=== PATIENT | male | born 1975 | race African-American/Black ===

== ENCOUNTER 2021-12-24 23:51 | Inpatient (IN) | payer OTHER, MEDICAID ==
[~2021-12-24] VITALS: Ht 175.3 cm; Wt 92.8 kg
[2021-12-25] MEDS ORDERED: THIAMINE HCL 100 MG TAB PO ONE (01:00)
[2021-12-25] MEDS ORDERED: SODIUM CHLORIDE 0.9% 1,000 ML IV ONE (01:00)
[2021-12-25] MEDS ORDERED: LORazepam 2MG/ML-1ML VIAL IV ONE ×2 (01:00→07:30)
[2021-12-25 01:41] LABS: Basophils # (auto) 0 10 ^3/uL (0-0.2); Basophils % (auto) 0.7 % (0.0-2.0); Eosinophils # (auto) 0.1 10 ^3/uL (0-0.8); Eosinophils % (auto) 3.2 % (0.0-7.0); Hematocrit 41.5 % (41.0-53.0); Hemoglobin 14.2 g/dL (13.5-17.5); Lymphocytes # (auto) 0.9 10 ^3/uL (0.4-5.4); Lymphocytes % (auto) 29.5 % (10.0-50.0); Mean Corpuscular Hemoglobin 33.2 pg (28.0-32.0); Mean Corpuscular Hgb Conc. 34.1 g/dL (32.0-36.0); Mean Corpuscular Volume 97.3 fL (80.0-100.0); Monocytes # (auto) 0.5 10 ^3/uL (0-1.3); Monocytes % (auto) 14.6 % (0.0-12.0); Neutrophils # (auto) 1.6 10 ^3/uL (1.6-8.6); Nucleated Red Blood Cells % 0.1 %; Red Blood Cells 4.27 10^6/uL (4.5-5.90); Red Cell Distribution Width 14.3 % (11.8-14.3); White Blood Cell 3.1 10^3/uL (4.4-10.8)
[2021-12-25 02:10] LABS: BUN/Creatinine Ratio 10.6; Calcium 8.8 mg/dL (8.5-10.1); Potassium 3.8 mmol/L (3.5-5.1)
[2021-12-25 02:12] LABS: Bilirubin, Total 2.2 mg/dL (0.2-1.0); Total Protein 7.2 g/dL (6.4-8.2)
[2021-12-25] MEDS ORDERED: LORazepam 2MG/ML-1ML VIAL IV PRN ×3 (11:30→18:45)
[2021-12-25] MEDS ORDERED: SODIUM CHLORIDE 0.9% 2,000 ML IV ONE (11:30)
[2021-12-25] MEDS ORDERED: ONDANSETRON HCL 4 MG/2 ML VIAL IV PRN (11:30)
[2021-12-25] MEDS ORDERED: ALBUTEROL SULF 2.5 MG/0.5ML(0.5%) NEB SOLN NEB PRN (11:45)
[2021-12-25] MEDS: FOLIC ACID 1 MG, MULTIPLE VITAMIN 10 ML, THIAMINE INJ 100 MG in SODIUM CHLORIDE 0.9% 1,... INJ SCH (12:00)
[2021-12-25 12:31] LABS: Cholesterol 274 mg/dL (< 200); HDL Cholesterol 87 mg/dL (40-59); LDL Cholesterol 157 mg/dL (< 100); Triglycerides 168 mg/dL (< 150)
[2021-12-25 13:18] VITALS: BP 130/76
[2021-12-25] MEDS ORDERED: chlordiazePOXIDE HCL 25 MG CAP PO PRN (18:45)
[2021-12-25 22:00] VITALS: BP 144/93
[2021-12-26 05:26] VITALS: BP 146/85
[2021-12-26 08:40] VITALS: BP 152/94
[2021-12-26 09:24] LABS: Basophils # (auto) 0 10 ^3/uL (0-0.2); Basophils % (auto) 0.5 % (0.0-2.0); Eosinophils # (auto) 0.2 10 ^3/uL (0-0.8); Eosinophils % (auto) 4.9 % (0.0-7.0); Hemoglobin 14.1 g/dL (13.5-17.5); Lymphocytes # (auto) 1.2 10 ^3/uL (0.4-5.4); Lymphocytes % (auto) 37.8 % (10.0-50.0); Mean Corpuscular Hemoglobin 33.2 pg (28.0-32.0); Mean Corpuscular Hgb Conc. 34.4 g/dL (32.0-36.0); Mean Corpuscular Volume 96.7 fL (80.0-100.0); Monocytes # (auto) 0.4 10 ^3/uL (0-1.3); Monocytes % (auto) 13.5 % (0.0-12.0); Neutrophils # (auto) 1.4 10 ^3/uL (1.6-8.6); Neutrophils % (auto) 43.3 % (37.0-80.0); Nucleated Red Blood Cells % 0.4 %; Red Blood Cells 4.24 10^6/uL (4.5-5.90); Red Cell Distribution Width 13.6 % (11.8-14.3); White Blood Cell 3.1 10^3/uL (4.4-10.8)
[2021-12-26 09:42] LABS: Potassium 3.6 mmol/L (3.5-5.1)
[2021-12-26 09:43] LABS: Albumin 3.6 g/dL (3.4-5.0); Calcium 8.4 mg/dL (8.5-10.1)
[2021-12-26 09:46] LABS: BUN/Creatinine Ratio 11.1; Bilirubin, Total 1.6 mg/dL (0.2-1.0)
[2021-12-26] MEDS ORDERED: ENOXAPARIN SOD 30 MG/0.3 ML SYRINGE SC SCH (10:00)
[2021-12-26] MEDS: ALBUTEROL SULF 2.5 MG/0.5ML(0.5%) NEB SOLN ONE ×2 (11:34→11:45)
[2021-12-26] MEDS ORDERED: ALBUTEROL SULF 2.5 MG/0.5ML(0.5%) NEB SOLN NEB SCH (12:00)
[2021-12-26 12:30] VITALS: BP 143/88
[2021-12-26] MEDS: FOLIC ACID 1 MG, MULTIPLE VITAMIN 10 ML, THIAMINE INJ 100 MG in SODIUM CHLORIDE 0.9% 1,... INJ SCH (13:00)
== END 2021-12-26 14:25 | disposition left against medical advice (07) | DRG 101 ==
LOC: EDBD 23:51 → ER 23:51 → TELE 12-25 11:23 → TELE-CENTR 12-25 20:00
PROVIDERS: ADMIT Registered Nurse; ATTEND Family Medicine
DX: G40.89 Other seizures (principal); F10.239 Alcohol dependence with withdrawal, unspecified; Z20.822 Contact with and (suspected) exposure to COVID-19; Z53.29 Procedure and treatment not carried out because of patient's decision for other reasons; D69.6 Thrombocytopenia, unspecified; F41.9 Anxiety disorder, unspecified; Y90.9 Presence of alcohol in blood, level not specified; J45.909 Unspecified asthma, uncomplicated; K70.10 Alcoholic hepatitis without ascites; N40.0 Benign prostatic hyperplasia without lower urinary tract symptoms
CPT/HCPCS: 36415; 70450; 70551; 71045; 76705; 80053; 80061; 80320; 84484; 85025; 93005; 93886; 94640; 96361; 96374; 96376; G0378

== ENCOUNTER 2022-06-23 04:35 | Emergency (ER) | payer OTHER, MEDICAID ==
[~2022-06-23] VITALS: Ht 175.3 cm; Wt 95.0 kg
[2022-06-23 04:35] VITALS: BP 133/78
[2022-06-23] MEDS ORDERED: THIAMINE 100mg/ml INJ (200mg/2ml VIAL) IV ONE (06:45)
[2022-06-23] MEDS ORDERED: SODIUM CHLORIDE 0.9% 1,000 ML IV ONE ×2 (06:45)
[2022-06-23 07:23] LABS: Hematocrit 43.6 % (41.0-53.0); Mean Corpuscular Hemoglobin 32.8 pg (28.0-32.0); Mean Corpuscular Hgb Conc. 34.3 g/dL (32.0-36.0); Mean Corpuscular Volume 95.4 fL (80.0-100.0); Red Blood Cells 4.56 10^6/uL (4.5-5.90); Red Cell Distribution Width 13.5 % (11.8-14.3); White Blood Cell 3.2 10^3/uL (4.4-10.8)
[2022-06-23 07:38] LABS: Band Neutrophils % (manual) 0; Blast Cells 0; Metamyelocytes % 0; Myelocytes % 0; Promyelocytes % 0; Reactive Lymphocytes 0
[2022-06-23 07:43] LABS: Albumin 4.4 g/dL (3.4-5.0); Calcium 8.7 mg/dL (8.5-10.1); Potassium 4.2 mmol/L (3.5-5.1)
[2022-06-23 07:47] LABS: BUN/Creatinine Ratio 13.1; Bilirubin, Total 1.3 mg/dL (0.2-1.0)
[2022-06-23 09:57] LABS: Basophils % (manual) 2 (0.0-2.0); Eosinophils % (manual) 1 (0-7); Lymphocytes % (manual) 58 (10.0-50.0); Monocytes % (manual) 8 (0-12)
== END 2022-06-23 17:05 | disposition home or self-care (01) ==
LOC: ER 04:35
DX: F10.10 Alcohol abuse, uncomplicated (principal); J45.909 Unspecified asthma, uncomplicated; F17.210 Nicotine dependence, cigarettes, uncomplicated; F12.10 Cannabis abuse, uncomplicated
CPT/HCPCS: 36415; 80053; 80320; 84484; 85007; 85027; 96361; 96374; 99284; J3411; J7030

== ENCOUNTER → 2022-07-25 | Emergency (ER) | payer OTHER, MEDICAID ==
[~2022-07-25] VITALS: Ht 175.3 cm; Wt 90.1 kg
[~2022-07-25] MED LIST: LORA-205 PO; NALT50TA27 PO; TAM04C PO; THIA100T10 PO; [UNRECOGNIZED DRUG - CODE] EX
[2022-07-25 16:58] VITALS: BP 122/93
[2022-07-25 17:29] LABS: Basophils # (auto) 0.1 10 ^3/uL (0-0.2); Basophils % (auto) 1.1 % (0.0-2.0); Eosinophils # (auto) 0.1 10 ^3/uL (0-0.8); Eosinophils % (auto) 2.7 % (0.0-7.0); Hematocrit 49.2 % (41.0-53.0); Hemoglobin 16.2 g/dL (13.5-17.5); Lymphocytes # (auto) 2.1 10 ^3/uL (0.4-5.4); Lymphocytes % (auto) 38.8 % (10.0-50.0); Mean Corpuscular Hemoglobin 32.1 pg (28.0-32.0); Mean Corpuscular Volume 97.3 fL (80.0-100.0); Monocytes # (auto) 0.4 10 ^3/uL (0-1.3); Monocytes % (auto) 7.6 % (0.0-12.0); Neutrophils # (auto) 2.7 10 ^3/uL (1.6-8.6); Neutrophils % (auto) 49.8 % (37.0-80.0); Nucleated Red Blood Cells % 0.2 %; Red Blood Cells 5.05 10^6/uL (4.5-5.90); Red Cell Distribution Width 13.5 % (11.8-14.3); White Blood Cell 5.4 10^3/uL (4.4-10.8)
[2022-07-25 17:53] LABS: Albumin 4.3 g/dL (3.4-5.0); BUN/Creatinine Ratio 13.3; Calcium 8.5 mg/dL (8.5-10.1); Potassium 4.7 mmol/L (3.5-5.1)
[2022-07-25 17:56] LABS: Bilirubin, Total 0.8 mg/dL (0.2-1.0)
== END | disposition left against medical advice (07) ==
LOC: ER 16:14
DX: F41.9 Anxiety disorder, unspecified (principal); R07.89 Other chest pain; Z53.21 Procedure and treatment not carried out due to patient leaving prior to being seen by health care provider
CPT/HCPCS: 36415; 71045; 80053; 84484; 85025

== ENCOUNTER 2022-07-26 22:19 | Inpatient (IN) | payer OTHER, MEDICAID ==
[~2022-07-26] VITALS: Ht 175.3 cm; Wt 90.1 kg
[2022-07-26] MEDS ORDERED: SODIUM CHLORIDE 0.9% 1,000 ML IV ONE (22:45)
[2022-07-26] MEDS ORDERED: LORazepam 0.5 MG TAB PO ONE (22:45)
[2022-07-26] MEDS ORDERED: LORazepam 2MG/ML-1ML VIAL IM ONE (22:45)
[2022-07-26] MEDS ORDERED: PHENobarbital SODIUM 130 MG/ML VL IV ONE (22:45)
[2022-07-27 00:06] LABS: Basophils # (auto) 0.1 10 ^3/uL (0-0.2); Basophils % (auto) 1.2 % (0.0-2.0); Eosinophils # (auto) 0.2 10 ^3/uL (0-0.8); Eosinophils % (auto) 3.7 % (0.0-7.0); Hematocrit 48.2 % (41.0-53.0); Hemoglobin 15.9 g/dL (13.5-17.5); Lymphocytes # (auto) 2.6 10 ^3/uL (0.4-5.4); Lymphocytes % (auto) 47.6 % (10.0-50.0); Mean Corpuscular Hemoglobin 32.2 pg (28.0-32.0); Mean Corpuscular Volume 97.5 fL (80.0-100.0); Monocytes # (auto) 0.3 10 ^3/uL (0-1.3); Monocytes % (auto) 6.2 % (0.0-12.0); Neutrophils # (auto) 2.3 10 ^3/uL (1.6-8.6); Neutrophils % (auto) 41.3 % (37.0-80.0); Nucleated Red Blood Cells % 0.1 %; Red Blood Cells 4.94 10^6/uL (4.5-5.90); Red Cell Distribution Width 13.2 % (11.8-14.3); White Blood Cell 5.5 10^3/uL (4.4-10.8)
[2022-07-27] MEDS ORDERED: LORazepam 0.5 MG TAB PO ONE (01:30)
[2022-07-27 01:33] LABS: Albumin 4.5 g/dL (3.4-5.0); Potassium 4.6 mmol/L (3.5-5.1)
[2022-07-27 01:36] LABS: Bilirubin, Total 1.3 mg/dL (0.2-1.0); Total Protein 8.3 g/dL (6.4-8.2)
[2022-07-27] MEDS ORDERED: chlordiazePOXIDE HCL 25 MG CAP PO PRN (03:45)
[2022-07-27] MEDS ORDERED: TEMAZEPAM 15 MG CAP PO PRN (03:45)
[2022-07-27] MEDS ORDERED: NITROGLYCERIN 0.4 MG SL TAB SL PRN (03:45)
[2022-07-27] MEDS ORDERED: MORPHINE SULFATE INJ 2 MG/ml SYRG IV PRN (03:45)
[2022-07-27] MEDS ORDERED: ONDANSETRON HCL 4 MG/2 ML VIAL IV PRN ×2 (03:45→16:00)
[2022-07-27] MEDS ORDERED: FOLIC ACID 1 MG, MULTIPLE VITAMIN 10 ML, MAGNESIUM SULF SDV 50% 8 MEQ, THIAMINE INJ 100... INJ SCH ×5 (12:00)
[2022-07-27] MEDS ORDERED: FOLIC ACID 1 MG TAB PO ONE (16:00)
[2022-07-27] MEDS ORDERED: THIAMINE HCL 100 MG TAB PO ONE (16:00)
[2022-07-27] MEDS ORDERED: MULTIPLE VITAMIN TAB PO ONE (16:00)
[2022-07-27] MEDS: chlordiazePOXIDE HCL 25 MG CAP PO SCH (16:33)
[2022-07-27] MEDS ORDERED: TAMSULOSIN HYDROCHLORIDE 0.4 MG CAP PO SCH (18:00)
[2022-07-27] MEDS: LORazepam 0.5 MG TAB PO PRN (20:43)
[2022-07-28] MEDS: chlordiazePOXIDE HCL 25 MG CAP PO SCH ×2 (00:49→09:25)
[2022-07-28] MEDS: LORazepam 0.5 MG TAB PO PRN (04:59)
[2022-07-28] MEDS ORDERED: ACETAMINOPHEN 325 MG TAB PO ONE (07:00)
[2022-07-28] MEDS ORDERED: MULTIPLE VITAMIN TAB PO SCH (10:00)
[2022-07-28] MEDS ORDERED: FOLIC ACID 1 MG TAB PO SCH (10:00)
[2022-07-28] MEDS ORDERED: THIAMINE HCL 100 MG TAB PO SCH (10:00)
[2022-07-28] MEDS ORDERED: chlordiazePOXIDE HCL 25 MG CAP PO SCH (10:00)
[2022-07-28 11:00] VITALS: BP 139/92
[2022-07-28] MEDS ORDERED: LORA-205 PO (13:03)
[2022-07-28] MEDS ORDERED: THIA100T10 PO (13:08)
[2022-07-28] MEDS ORDERED: [UNRECOGNIZED DRUG - CODE] EX (13:08)
[2022-07-28] MEDS ORDERED: TAM04C PO (13:08)
[2022-07-28] MEDS ORDERED: NALT50TA27 PO (13:08)
[2022-07-29] MEDS ORDERED: chlordiazePOXIDE HCL 25 MG CAP PO SCH (10:00)
[2022-07-30] MEDS ORDERED: chlordiazePOXIDE HCL 25 MG CAP PO SCH (07:00)
== END 2022-07-28 13:44 | disposition home or self-care (01) | DRG 897 ==
LOC: ER 22:24 → TELE 07-27 03:31
PROVIDERS: ADMIT Nurse Practitioner; ATTEND Student in an Organized Health Care Education/Training Program
DX: F10.229 Alcohol dependence with intoxication, unspecified (principal); F10.239 Alcohol dependence with withdrawal, unspecified; F17.210 Nicotine dependence, cigarettes, uncomplicated; F41.9 Anxiety disorder, unspecified; J45.909 Unspecified asthma, uncomplicated; N40.0 Benign prostatic hyperplasia without lower urinary tract symptoms; Z20.822 Contact with and (suspected) exposure to COVID-19; Z91.013 Allergy to seafood
CPT/HCPCS: 36415; 71045; 80053; 80320; 83690; 83735; 84484; 85025; 87426; 93005; 96372; G0378; J2405

== ENCOUNTER 2023-02-08 22:09 | Emergency (ER) | payer OTHER ==
[~2023-02-08] VITALS: Ht 175.3 cm; Wt 95.4 kg
[~2023-02-08 22:09] MED LIST changes: +HYDR-4798 PO; +IBUP-1455 PO; +PERCOT PO; -TAM04C PO; +TAMS-35 PO
[2023-02-09] MEDS ORDERED: ONDANSETRON HCL 4 MG/2 ML VIAL IV ONE (00:30)
[2023-02-09] MEDS ORDERED: HYDROmorphone HCL 2 MG/ML VL/or syr IV ONE (00:30)
[2023-02-09] MEDS ORDERED: LORazepam 2MG/ML-1ML VIAL IV ONE (00:30)
[2023-02-09] MEDS ORDERED: ceFAZolin 2 GM/D5W100ml 100 ML IV ONE (00:30)
[2023-02-09] MEDS ORDERED: SODIUM CHLORIDE 0.9% 1,000 ML IV ONE (00:30)
[2023-02-09] MEDS ORDERED: VANCOMYCIN 1GM/250ML 250 ML IV ONE ×2 (01:19→01:30)
[2023-02-09 01:56] VITALS: BP 145/88
== END 2023-02-09 02:14 | disposition short-term general hospital (02) ==
LOC: ER 22:09
DX: S02.32XA Fracture of orbital floor, left side, initial encounter for closed fracture (principal); J45.909 Unspecified asthma, uncomplicated; F41.9 Anxiety disorder, unspecified; F17.210 Nicotine dependence, cigarettes, uncomplicated; F12.10 Cannabis abuse, uncomplicated; F10.20 Alcohol dependence, uncomplicated; Z91.013 Allergy to seafood; Y90.9 Presence of alcohol in blood, level not specified; V43.62XA Car passenger injured in collision with other type car in traffic accident, initial encounter; Y93.89 Activity, other specified; Y92.89 Other specified places as the place of occurrence of the external cause; Y99.8 Other external cause status
CPT/HCPCS: 70450; 70486; 71250; 72125; 74176; 96365; 96375; 99285; J1170; J2405; J3370; J7030

== ENCOUNTER 2023-03-01 06:04 | Emergency (ER) | payer OTHER ==
[~2023-03-01] VITALS: Ht 175.3 cm; Wt 95.5 kg
[2023-03-01 09:41] VITALS: BP 132/87
== END 2023-03-01 09:45 | disposition home or self-care (01) ==
LOC: ER 06:04
DX: R51.9 Headache, unspecified (principal); M54.50 Low back pain, unspecified; S02.85XS Fracture of orbit, unspecified, sequela; J45.909 Unspecified asthma, uncomplicated; F17.210 Nicotine dependence, cigarettes, uncomplicated; F12.10 Cannabis abuse, uncomplicated; V89.2XXS Person injured in unspecified motor-vehicle accident, traffic, sequela
CPT/HCPCS: 70450; 70486; 72131

== ENCOUNTER 2023-07-11 02:36 | Emergency (ER) | payer OTHER ==
[~2023-07-11] VITALS: Ht 175.3 cm; Wt 90.0 kg
[2023-07-11 02:50] VITALS: BP 124/78; PULSE 98; RESP 16; O2SAT 95
[2023-07-11 03:22] LABS: Urine Bacteria NONE SEEN /hpf (None Seen); Urine Blood Negative /uL (Negative); Urine Clarity Clear (Clear); Urine Color Yellow (Yellow); Urine Mucus FEW (None Seen); Urine Protein, UAD TRACE (Negative); Urine Specific Gravity 1.028 (1.001-1.035); Urine Urobilinogen Normal (Negative); Urine WBC 1 /hpf (0 - 3); Urine pH 5.5 (5.0-8.0)
== END 2023-07-11 04:56 | disposition left against medical advice (07) ==
LOC: ER 02:36
DX: N50.812 Left testicular pain (principal); N50.811 Right testicular pain; R30.9 Painful micturition, unspecified; Z53.21 Procedure and treatment not carried out due to patient leaving prior to being seen by health care provider
CPT/HCPCS: 81001

== ENCOUNTER 2024-10-24 18:05 | Emergency (ER) | payer OTHER ==
[~2024-10-24] VITALS: Ht 175.3 cm; Wt 91.0 kg
[~2024-10-24 18:05] MED LIST changes: +HYDR50TA69 PO; +METH-1182 PO; +TRAM50TA2 PO; +[UNRECOGNIZED DRUG - CODE] EX; -[UNRECOGNIZED DRUG - CODE] EX
[2024-10-24 18:23] VITALS: BP 161/104
--- NOTE | 2024-10-24 18:25 | ED.PDOC ---
History of Present Illness HPI Comments 49 year old male brought in by EMS presents to the ED with a chief complaint of ETOH withdraws onset today (10/24/24). Patient states he recently got out of rehab, had about 8 shots of ETOH today and believes he is going through withdraws. Patient states he was at home alone, began experiencing tremors, palp itations and decided to call 911. PMHx anxiety, depression, asthma. Denies shortness of breath, nausea, vomiting, diarrhea, abdominal pain, headache, dysuria, fevers. No other symptoms or modifying factors present at this time. Time Seen by MD: 18:15 Primary Care Provider: LORAINE Reviewed Notes: Medications, Allergies Allergies: Uncoded Allergies: FISH (Allergy, Unknown, 07/25/22) Home Meds Active Scripts Tramadol Hcl (Tramadol Hcl) 50 Mg Tab, 50 MG PO TID, #24 TAB Prov:YARELIS MCDANIELS 10/23/23 Methocarbamol (Methocarbamol) 750 Mg Tab, 750 MG PO BID, #20 TAB Prov:YARELIS MCDANIELS 10/23/23 Hydroxyzine Hcl (Hydroxyzine Hcl) 50 Mg Tab, 1 TAB PO BID for 14 Days, #28 TAB 2 Refills Prov:CELESTE SANDHU MD 09/04/23 Hydrocodone-Acetaminophen (Hydrocodone Bitartrate/AC 10-325 mg) 1 Tab Tab, 1 TAB PO Q8HP PRN, #21 TAB Prov:MASOUD LARIOS PAC 10/29/22 Ibuprofen Micronized (Ibuprofen) 800 Mg Tab, 800 MG PO Q8HP PRN, #30 TAB Prov:MASOUD LARIOS PAC 10/29/22 Oxycodone W/ Acetaminophen (Percocet 5/325MG) 1 Tab Tb, 1 TAB PO BID for 7 Days, #14 TAB Prov:PRAVIN GIRON MD 10/21/22 Naltrexone HCl (Naltrexone Hydrochloride) 50 Mg Tab, 50 MG PO DAILY for 30 Days, #30 TAB Prov:LUISITO ARNETT MD 07/28/22 Fluticasone Propionate (FLUTICASONE PROPIONATE) 0.05 % Lot, 0.05 % EX BID for 30 Days, BOTTLE Prov:LUISITO ARNETT MD 07/28/22 Tamsulosin Hcl (Flomax) 0.4 Mg Cap, 0.4 MG PO QPM for 30 Days, CAP Prov:LUISITO ARNETT MD 07/28/22 Thiamine Hcl (VITAMIN B-1) 100 Mg Tb, 100 MG PO DAILY for 30 Days, #30 TAB Prov:LUISITO ARNETT MD 07/28/22 Reported Medications Tamsulosin Hcl (Flomax) 0.4 Mg Cap, 0.4 MG PO DAILY, CAP 08/28/22 Lorazepam (Ativan) 1 Mg Tab, 1 MG PO Q4HPRN PRN for 6 Days, #30 TAB 07/28/22 Information Source: Patient, Emergency Med Personnel Mode of Arrival: EMS Severity: Moderate Timing: Hours Duration: Since onset Prehospital treatment: None Past Medical History PAST MEDICAL HISTORY: Anxiety, Asthma, Depression Surgical History: Denies all surgeries Family History Family History: Reviewed,noncontributory to illness, Family hx of DM, Family hx of Cancer Social History Smoker: Cigarettes Alcohol: Heavy Drugs: Marijuana Lives In: Home Constitutional: denies: chills, diaphoresis, fatigue, fever, malaise, sweats, weakness, others EENTM: denies: blurred vision, double vision, ear bleeding, ear discharge, ear drainage, ear pain, ear ringing, eye pain, eye redness, hearing loss, mouth pain, mouth swelling, nasal discharge, nose bleeding, nose congestion, nose pain, photophobia, tearing, throat pain, throat swelling, voice changes, others Respiratory: denies: cough, hemoptysis, orthopnea, SOB at rest, shortness of breath, SOB with excertion, stridor, wheezing, others Cardiovascular: reports: palpitations; denies: chest pain, dizzy spells, diaphoresis, Dyspnea on exertion, edema, irregular heart beat, left arm pain, lightheadedness, PND, syncope, others Gastrointestinal: denies: abdomen distended, abdominal pain, blood streaked bowels, constipated, diarrhea, dysphagia, difficulty swallowing, hematemesis, melena, nausea, poor appetite, poor fluid intake, rectal bleeding, rectal pain, vomiting, others Genitourinary: denies: burning, dysuria, flank pain, frequency, hematuria, incontinence, penile discharge, penile sore, pain, testicle pain, testicle swelling, urgency, others Neurological: reports: tremors; denies: dizziness, fainting, headache, left sided numbness, left sided weakness, numbness, paresthesia, pre-existing deficit, right sided numbness, right sided weakness, seizure, speech problems, tingling, weakness, others Musculoskeletal: denies: back pain, gout, joint pain, joint swelling, muscle pain, muscle stiffness, neck pain, others Integumetry: denies: bruises, change in color, change in hair/nails, dryness, laceration, lesions, lumps, rash, wounds, others Allergic/Immunocompromised: denies: Difficulty Healing, Frequent Infections, Hives, Itching, others Hematologic/Lymphatic: denies: anemia, blood clots, easy bleeding, easy bruising, swollen glands, others Endocrine: denies: excessive hunger, excessive sweating, excessive thirst, excessive urination, flushing, intolerance to cold, intolerance to heat, unexplained weight gain, unexplained weight loss, others Psychiatric: reports: anxiety; denies: bipolar disorder, depression, hopeless, panic disorder, schizophrenia, sleepless, suicidal, others All Other Systems: Reviewed and Negative Physical Exam General Appearance: Moderate Distress, Normal HEENT: Normal ENT Inspection, Pharynx Normal, TMs Normal Neck: Full Range of Motion, Non-Tender, Normal, Normal Inspection Respiratory: Chest Non-Tender, Lungs Clear, No Accessory Muscle Use, No Respiratory Distress, Normal Breath Sounds Cardiovascular: No Edema, No JVD, No Murmur, No Gallop, Normal Peripheral Pulses, Regular Rate/Rhythm Breast Exam: Deferred Gastrointestinal: No Organomegaly, Non Tender, No Pulsatile Mass, Normal Bowel Sounds, Soft Genitalia: Deferred Pelvic: Deferred Rectal: Deferred Extremities: No calf tenderness, Normal capillary refill, Normal inspection, Normal range of motion, Non-tender, No pedal edema Musculoskeletal : Apperance: Normal Neurologic: Alert, general lot attendant II-XII nml as Tested, No Motor Deficits, Normal Affect, No Sensory Deficits, Other (tremors noted) Cerebellar Function: Normal Reflexes: Normal Skin: Dry, Normal Color, Warm Lymphatic: No Adenopathy Was a procedure done? Was a procedure done?: No Differential Dx Considerations may include: Alcohol withdrawal, polysubstance abuse, electrolyte abnormalities, ACS, X-Ray, Labs, Meds, VS Vital Signs Date Time Temp Pulse Resp B/P (MAP) Pulse Ox O2 Delivery O2 Flow Rate FiO2 10/24/24 18:55 110 20 98 Room Air* 0 21 10/24/24 18:23 99.0 128 16 161/104 (123) 97 Lab Test 10/24/24 19:34 10/24/24 18:35 Range/Units Troponin I High Sensitivity 11 10 </=54 ng/L White Blood Count 4.6 4.4-10.8 10^3/uL Red Blood Count 5.30 4.5-5.90 10^6/uL Hemoglobin 16.9 13.5-17.5 g/dL Hematocrit 51.3 41.0-53.0 % Mean Corpuscular Volume 96.8 80.0-100.0 fL Mean Corpuscular Hemoglobin 31.9 28.0-32.0 pg Mean Corpuscular Hemoglobin Concent 33.0 32.0-36.0 g/dL Red Cell Distribution Width 13.0 11.8-14.3 % Platelet Count 276 140-450 10^3/uL Mean Platelet Volume 8.4 6.9-10.8 fL Neutrophils (%) (Auto) 37.0-80.0 % Lymphocytes (%) (Auto) 10.0-50.0 % Monocytes (%) (Auto) 0.0-12.0 % Basophils (%) (Auto) 0.0-2.0 % Neutrophils # (Auto) 1.6-8.6 10 ^3/uL Lymphocytes # (Auto) 0.4-5.4 10 ^3/uL Monocytes # (Auto) 0-1.3 10 ^3/uL Differential Total Cells Counted 100.0 100 Neutrophils % (Manual) 17 L 37.0-80.0 Band Neutrophils % (Manual) 0 Lymphocytes % (Manual) 70 H 10.0-50.0 Monocytes % (Manual) 11 0-12 Eosinophils % (Manual) 2 0-7 Basophils % (Manual) 0 0.0-2.0 Metamyelocytes % (manual) 0 Myelocytes % (Manual) 0 Promyelocytes % (Manual) 0 Blast Cells % (Manual) 0 Reactive Lymphocytes 0 Platelet Estimate Adequate Large Platelets Few Red Blood Cell Morphology Normal Sodium Level 144 136-145 mmol/L Potassium Level 4.2 3.5-5.1 mmol/L Chloride Level 108 H 98-107 mmol/L Carbon Dioxide Level 25 20-31 mmol/L Anion Gap 11 5-15 Blood Urea Nitrogen 14 9-23 mg/dL Creatinine 1.18 0.700-1.30 mg/dL Glomerular Filtration Rate Calc 77 >90 mL/min BUN/Creatinine Ratio 11.9 10.0-20.0 Serum Glucose 96 74-106 mg/dL Calcium Level 9.3 8.7-10.4 mg/dL Plasma/Serum Blood Alcohol 349.3 H <10 mg/dL Current Medications Medications (Trade) Dose Ordered Sig/Girma Route Start Time Stop Time Status Last Admin Chlordiazepoxide HCl (Librium Capsule) 25 mg ONCE ONCE PO 10/24/24 18:30 10/24/24 18:31 DC 10/24/24 18:52 Sodium Chloride 1,000 ml @ 1,000 mls/hr Q1H ONCE IV 10/24/24 18:30 10/24/24 19:29 DC 10/24/24 18:53 Lorazepam (Ativan Tablet) 2 mg ONCE ONCE PO 10/24/24 18:45 10/24/24 18:46 DC 10/24/24 18:53 [place] [id number] Ph: [phone] DIAGNOSTIC IMAGING Diagnostic Imaging Report : [id number] Signed PATIENT: IVANA WILSONCCT: [id number] UNIT: [id number] : 1975 LOC: ER ROOM / BED: / AGE / SEX: 49 / M ADM STATUS: REG ER SERVICE 21 ORDERING PHYSICIAN: PAULA DONAHUE MD PROCEDURE(s): CXRP - CHEST PORTABLE REASON: palpitations ORDER NUMBER(s): [id number], ACCESSION NUMBER(s): [id number] CHEST RADIOGRAPH Indication: palpitations Technique: Single frontal view of the chest was obtained COMPARISON: CXRP on DOS: 07/26/22, CHEST PORTABLE on DOS: 07/26/22, CXRP on DOS: 07/25/22, CHEST PORTABLE on DOS: 07/25/22, CXRP on DOS: 12/25/21 FINDINGS: Lines and Tubes: None Lungs: Clear Pleura: No effusion. No pneumothorax. Cardiomediastinal contours: Unremarkable Bones: Unremarkable IMPRESSION: No abnormality. ATED BY: COLTON ALATORRE MD DICTATED DATE/TIME: 10/24/241942 SIGNED BY: COLTON ALATORRE MD SIGNED DATE/TIME: 10/24/241942 CC: Time of 1ST Reevaluation: 18:45 Reevaluation 1ST: Unchanged Patient Education/Counseling: Diagnosis, Treatment, Prognosis Family Education/Counseling: No Family Present Additional Information The following tests were ordered, and results were reviewed by me: BMP, CBC, BLOOD ALCOHOL, TROP-x3, UA, DRUG SCREEN, XY CHEST Additional Information was gathered from interviewing the following independent historians: EMS I reviewed and agreed with the following test results read by other providers: XY CHEST I discussed treatment and results with medical personnel and: PATIENT Departure 1 Departure Time of Disposition: 05:36 (Despite patient's eye blood alcohol level. Patient is following signs of withdrawal with tremulousness fasciculations and hypertension. Patient was ordered for multiple medications however patient eloped) Impression: Primary Impression: Seizure due to alcohol withdrawal Qualified Codes: F10.930 - Alcohol use, unspecified with withdrawal, uncomplicated; R56.9 - Unspecified convulsions Additional Impression: Metabolic encephalopathy Disposition: 07 LEFT AWOL/ELOPED Condition: Guarded Critical Care Note Critical Care Time?: No Stability Stability form required: No I personally scribed for PAULA DONAHUE MD ([email or web address]) on 10/24/24 at 18:25. Electronically submitted by Chantelle London ([email or web address]). I personally scribed for PAULA DONAHUE MD ([email or web address]) on 10/24/24 at 18:45. Electronically submitted by Chantelle London ([email or web address]). I personally scribed for PAULA DONAHUE MD ([email or web address]) on 10/24/24 at 19:10. Electronically submitted by Chantelle London ([email or web address]). I personally scribed for PAULA DONAHUE MD ([email or web address]) on 10/24/24 at 19:49. Electronically submitted by Chantelle London ([email or web address]). PAULA DONAHUE MD Oct 24, 2024 18:25
[2024-10-24] MEDS: chlordiazePOXIDE HCL 25 MG CAP PO ONE (18:52)
[2024-10-24] MEDS: SODIUM CHLORIDE 0.9% 1,000 ML IV ONE (18:53)
[2024-10-24] MEDS: LORazepam 0.5 MG TAB PO ONE (18:53)
[2024-10-24 18:55] VITALS: PULSE 110; RESP 20; O2SAT 98
[2024-10-24 19:08] LABS: Hematocrit 51.3 % (41.0-53.0); Hemoglobin 16.9 g/dL (13.5-17.5); Mean Corpuscular Hemoglobin 31.9 pg (28.0-32.0); Mean Corpuscular Volume 96.8 fL (80.0-100.0); Platelet Count (auto) 276 10^3/uL (140-450); White Blood Cell 4.6 10^3/uL (4.4-10.8)
[2024-10-24 19:13] LABS: Band Neutrophils % (manual) 0; Basophils % (manual) 0 (0.0-2.0); Blast Cells 0; Metamyelocytes % 0; Myelocytes % 0; Promyelocytes % 0; Reactive Lymphocytes 0
[2024-10-24 19:22] LABS: Potassium 4.2 mmol/L (3.5-5.1)
[2024-10-24 19:23] LABS: Calcium 9.3 mg/dL (8.7-10.4); Carbon Dioxide 25 mmol/L (20-31)
[2024-10-24 19:28] LABS: BUN/Creatinine Ratio 11.9 (10.0-20.0); Blood Urea Nitrogen 14 mg/dL (9-23); Glucose 96 mg/dL (74-106)
[2024-10-24 19:36] LABS: Eosinophils % (manual) 2 (0-7); Large Platelets FEW; Lymphocytes % (manual) 70 (10.0-50.0); Monocytes % (manual) 11 (0-12); Platelet Estimate Adequate; RBC Morphology Normal
[2024-10-24 19:38] LABS: Blood Alcohol 349.3 mg/dL (<10); Chloride 108 mmol/L (98-107)
--- NOTE | 2024-10-24 19:45 | DVH ---
CHEST RADIOGRAPH Indication: palpitations Technique: Single frontal view of the chest was obtained COMPARISON: CXRP on DOS: 07/26/22, CHEST PORTABLE on DOS: 07/26/22, CXRP on DOS: 07/25/22, CHEST PORTABL E on DOS: 07/25/22, CXRP on DOS: 12/25/21 FINDINGS: Lines and Tubes: None Lungs: Clear Pleura: No effusion. No pneumothorax. Cardiomediastinal contours: Unremarkable Bones: Unremarkable IMPRESSION: No abnormality.
[2024-10-24 20:20] LABS: Anion Gap 11 (5-15); Sodium 144 mmol/L (136-145)
== END 2024-10-24 21:29 | disposition left against medical advice (07) ==
LOC: ER 18:05 → EDBD 18:05 → ER 21:29
DX: F10.239 Alcohol dependence with withdrawal, unspecified (principal); R56.9 Unspecified convulsions; G93.41 Metabolic encephalopathy; R00.2 Palpitations; Y90.8 Blood alcohol level of 240 mg/100 ml or more; F41.9 Anxiety disorder, unspecified; J45.909 Unspecified asthma, uncomplicated; F17.210 Nicotine dependence, cigarettes, uncomplicated; Z91.013 Allergy to seafood
CPT/HCPCS: 36415; 71045; 80048; 80320; 84484; 85007; 85027; 96360; 99284; J7030